=== PATIENT | female | born 1965 ===

== ENCOUNTER 2019-04-11 07:42 | Emergency (ER) | payer MEDICARE, OTHER ==
[~2019-04-11] VITALS: Ht 170.2 cm; Wt 63.5 kg
[~2019-04-11 07:42] MED LIST: ALBU90OI INH; BUPR100; DEPAKOTE; DIVA500EC; DOXY100 PO; HYDPAM25; LORA1 PO; METO25 PO; RISP3; WELLBUTRIN
[2019-04-11 09:06] LABS: Source, Urine Clean Catch
[2019-04-11 09:14] LABS: BASOPHILS ABSOLUTE AUTO 0.02 K/mm3 (0.00-0.23); BASOPHILS PERCENT AUTO 0 % (0-2); EOSINOPHILS PERCENT AUTO 0 % (0-6); Hematocrit 40.1 % (33.0-51.0); Hemoglobin 13.1 g/dL (11.5-16.0); IMMATURE GRAN ABSOLUTE AUTO 0.05 K/mm3 (0.00-0.10); IMMATURE GRAN PERCENT AUTO 0 % (0-1); LYMPHOCYTES ABSOLUTE AUTO 1.65 K/mm3 (0.84-5.20); LYMPHOCYTES PERCENT AUTO 13 % (21-46); MONOCYTES PERCENT AUTO 12 % (4-13); Mean Corpuscular HGB 30.6 pg (26.0-34.0); Mean Corpuscular HGB Conc 32.7 g/dL (31.5-36.5); Mean Corpuscular Volume 94 fL (80-100); Mean Platelet Volume 8.8 fL (9.1-12.4); NEUTROPHILS ABSOLUTE AUTO 9.54 K/mm3 (1.96-9.15); NEUTROPHILS PERCENT AUTO 75 % (41-73); Platelet Count 371 K/mm3 (150-400); RDW Coefficient Variation 11.8 % (11.7-14.2); RDW Standard Deviation 40.4 fL (35.1-46.3); Red Blood Cell Count 4.28 M/mm3 (3.80-5.20); White Blood Cell Count 12.76 K/mm3 (4.00-11.30)
[2019-04-11 09:23] LABS: Appearance, Urine Hazy (Clear); Bilirubin, Urine Neg (Neg); Blood, Urine Neg (Neg); Color, Urine Yellow (P-Yellow); Glucose Qualitative, Urine Neg (Neg); Ketones, Urine Neg (Neg); Leukocyte Esterase, Urine 2+ (Neg); Nitrite, Urine Neg (Neg); Protein, Urine 2+ (Neg); Urobilinogen, Urine NORM (Normal)
[2019-04-11 09:32] LABS: Alanine Aminotransfer (ALT/SGP 59 U/L (12-78); Albumin, Blood 3.3 g/dL (3.4-5.0); Albumin/Globulin Ratio 0.9 (0.8-1.8); Alk Phos 67 U/L (50-136); Anion Gap 6 mmol/L (6-16); Aspartate Aminotrans (AST/SGOT 30 U/L (12-37); Bilirubin, Total 0.4 mg/dL (0.1-1.0); Blood Urea Nitrogen 7 mg/dL (8-24); Bun/Creatinine Ratio 10.1 (12.0-20.0); CO2, Blood 29 mmol/L (21-32); Calcium, Blood 8.7 mg/dL (8.5-10.1); Chloride, Blood 102 mmol/L (98-108); Creatinine, Blood 0.69 mg/dL (0.40-1.00); Globulin, Blood 3.7 g/dL (2.2-4.0); Glomerular Filtration Rate >60 (60-); Glucose, Blood 99 mg/dL (70-99); Potassium, Blood 3.9 mmol/L (3.5-5.5); Sodium, Blood 137 mmol/L (136-145)
[2019-04-11 09:32] LABS: Bacteria Many /hpf; Red Blood Cells, Urine Not Seen /hpf (0-2); Squamous Epithelial Cells Few /hpf (Few); White Blood Cells, Urine TNTC /hpf (0-5)
[2019-04-11] MEDS ORDERED: CEFP200 PO (10:56)
== END 2019-04-11 11:16 | disposition home or self-care (01) ==
LOC: ER 07:42
PROVIDERS: Emergency Medicine
DX: N39.0 Urinary tract infection, site not specified (principal); I10 Essential (primary) hypertension; F41.9 Anxiety disorder, unspecified; Z88.5 Allergy status to narcotic agent; Z79.899 Other long term (current) drug therapy
CPT/HCPCS: 36415; 80053; 81001; 85025; 87077; 87086; 87186; 96365; 99283-25; J0696; J7030